=== PATIENT | female | born 1985 ===

== ENCOUNTER → 2023-09-24 | Outpatient (CLI) | payer OTHER ==
[2023-09-24 15:12] LABS: Free Thyroxine 1.05 ng/dL (0.70-1.60)
[2023-09-24 15:17] LABS: Thyroid Stimulating Hormone 0.068 uIU/mL (0.360-4.800)
[2023-09-24 15:18] LABS: Triiodothyronine, Free 2.71 pg/mL (2.18-3.98)
== END | disposition home or self-care (01) ==
LOC: LAB SHORT 13:38
PROVIDERS: Family Medicine
DX: E03.9 Hypothyroidism, unspecified (principal)
CPT/HCPCS: 84439; 84443; 84481

== ENCOUNTER → 2024-04-13 | Outpatient (CLI) | payer OTHER | LOC: LAB SHORT 16:24 → LAB 16:24 | DX: E03.9 Hypothyroidism, unspecified (principal) | CPT/HCPCS: 84443 ==